=== PATIENT | male | born 1940 | race Caucasian/White ===

== ENCOUNTER 2018-09-17 10:36 | Outpatient (CLI) | payer MEDICARE, OTHER ==
[2018-09-17 18:08] LABS: INR 3.1 (0.8-1.2); PT - PROTHROMBIN TIME 34.3 secs (9.9-12.6)
== END 2018-09-17 10:37 | disposition home or self-care (01) ==
LOC: LAB.F 10:36
DX: I48.91 Unspecified atrial fibrillation (principal)
CPT/HCPCS: 36415; 85610

== ENCOUNTER 2018-10-08 10:19 | Outpatient (CLI) | payer MEDICARE ==
[2018-10-08 17:38] LABS: INR 2.6 (0.8-1.2); PT - PROTHROMBIN TIME 28.8 secs (9.9-12.6)
== END 2018-10-08 10:20 | disposition home or self-care (01) ==
LOC: LAB.F 10:19
DX: I48.91 Unspecified atrial fibrillation (principal)
CPT/HCPCS: 85610

== ENCOUNTER 2018-11-05 10:03 | Outpatient (CLI) | payer MEDICARE ==
[2018-11-05 17:28] LABS: INR 3.1 (0.8-1.2); PT - PROTHROMBIN TIME 34.6 secs (9.9-12.6)
== END 2018-11-05 10:04 | disposition home or self-care (01) ==
LOC: LAB.F 10:03
PROVIDERS: ATTEND Pharmacist Pharmacist Clinician (PhC)/ Clinical Pharmacy Specialist
DX: I48.91 Unspecified atrial fibrillation (principal)
CPT/HCPCS: 36415; 85610

== ENCOUNTER 2018-11-19 10:28 | Outpatient (CLI) | payer MEDICARE ==
[2018-11-19 18:31] LABS: INR 2.4 (0.8-1.2); PT - PROTHROMBIN TIME 27.3 secs (9.9-12.6)
== END 2018-11-19 10:29 | disposition home or self-care (01) ==
LOC: LAB.F 10:28
PROVIDERS: ATTEND Pharmacist Pharmacist Clinician (PhC)/ Clinical Pharmacy Specialist
DX: I48.91 Unspecified atrial fibrillation (principal)
CPT/HCPCS: 36415; 85610

== ENCOUNTER 2018-12-03 12:11 | Outpatient (CLI) | payer MEDICARE ==
[2018-12-03 18:20] LABS: PT - PROTHROMBIN TIME 33.8 secs (9.9-12.6)
== END 2018-12-03 12:12 | disposition home or self-care (01) ==
LOC: LAB.S 12:11
PROVIDERS: ATTEND Internal Medicine
DX: I48.91 Unspecified atrial fibrillation (principal)
CPT/HCPCS: 36415; 85610

== ENCOUNTER 2018-12-19 12:39 | Outpatient (CLI) | payer MEDICARE ==
[2018-12-19 17:44] LABS: INR 2.9 (0.8-1.2); PT - PROTHROMBIN TIME 32.8 secs (9.9-12.6)
== END 2018-12-19 12:40 | disposition home or self-care (01) ==
LOC: LAB.S 12:39
PROVIDERS: ATTEND Pharmacist Pharmacist Clinician (PhC)/ Clinical Pharmacy Specialist
DX: I48.91 Unspecified atrial fibrillation (principal)
CPT/HCPCS: 36415; 85610

== ENCOUNTER 2019-01-16 12:53 | Outpatient (CLI) | payer MEDICARE ==
[2019-01-16 17:31] LABS: INR 2.7 (0.8-1.2); PT - PROTHROMBIN TIME 29.8 secs (9.9-12.6)
== END 2019-01-16 12:54 | disposition home or self-care (01) ==
LOC: LAB.S 12:53
PROVIDERS: ATTEND Pharmacist Pharmacist Clinician (PhC)/ Clinical Pharmacy Specialist
DX: I48.91 Unspecified atrial fibrillation (principal)
CPT/HCPCS: 36415; 85610

== ENCOUNTER 2019-02-13 12:27 | Outpatient (CLI) | payer MEDICARE ==
[2019-02-13 17:28] LABS: PT - PROTHROMBIN TIME 33.9 secs (9.9-12.6)
== END 2019-02-13 12:28 | disposition home or self-care (01) ==
LOC: LAB.S 12:27
PROVIDERS: ATTEND Pharmacist Pharmacist Clinician (PhC)/ Clinical Pharmacy Specialist
DX: I48.91 Unspecified atrial fibrillation (principal)
CPT/HCPCS: 36415; 85610